=== PATIENT | male | born 1975 | race Caucasian/White ===

== ENCOUNTER 2019-09-09 20:17 | Emergency (ER) | payer BC ==
--- NOTE | 2019-09-09 20:58 | EDM.PDOC ---
ED HPI GENERAL MEDICAL PROBLEM - General Chief Complaint: Laceration Stated Complaint: CUT THIGH RIGHT SIDE Time Seen by Provider: 09/09/19 20:56 Source of Information: Reports: Patient History Limitations: Reports: No Limitations - History of Present Illness Onset: Today Location: Reports: Lower Extremity, Right Associated Symptoms: Reports: No Other Symptoms - Related Data Allergies Allergy/AdvReac Type Severity Reaction Status Date / Time No Known Allergies Allergy Verified 09/09/19 20:39 Home Meds: Home Meds NK [No Known Home Meds] 09/09/19 [History] Social & Family History - Tobacco Use Smoking Status *Q: Never Smoker ED ROS GENERAL - Review of Systems Review Of Systems: See Below Constitutional: Reports: No Symptoms Respiratory: Reports: No Symptoms Cardiovascular: Reports: No Symptoms ED EXAM, SKIN/RASH Exam: See Below Exam Limited By: No Limitations General Appearance: Alert, WD/WN Respiratory/Chest: No Respiratory Distress Cardiovascular: Normal Peripheral Pulses Extremities: Normal Range of Motion, No Pedal Edema, Other (antererior R thigh, just above knee. 1.5 cm linear laceration. Not bleeding and appears clean.) Neurological: Alert, Oriented Psychiatric: Normal Affect, Normal Mood ED SKIN PROCEDURES - Laceration/Wound Repair Right Lower Anterior Thigh Appearance: Subcutaneous Distal NVT: Neuro & Vascular Intact Skin Prep: Chlorhexidine (Hibiciens) Exploration/Debridement/Repair: Wound Explored Closed with: Ruby Lac/Wound length In cm: 1.5 # of Sutures: 2 Course - Vital Signs Last Recorded V/S: Last Vital Signs Temp 35.9 C L 09/09/19 20:45 Pulse 60 09/09/19 20:45 Resp 14 09/09/19 20:45 BP 117/76 09/09/19 20:45 Pulse Ox 99 09/09/19 20:45 - Orders/Labs/Meds Meds: Medications Discontinued Medications Generic Name Dose Route Start Last Admin Trade Name Freq PRN Reason Stop Dose Admin Diphtheria/Tetanus/Acell Pertussis 0.5 ml 09/09/19 21:09 09/09/19 21:15 Adacel IM 09/09/19 21:10 0.5 ml .ONCE ONE Administration Departure - Departure Time of Disposition: 20:58 Disposition: Home, Self-Care 01 Condition: Good Clinical Impression: Puncture wound - injury - Discharge Information Instructions: Laceration Care, Adult, [id number], Sutures, Scio, or Adhesive Wound Closure, [id number] Referrals: PCP,None [Primary Care Provider] - Forms: ED Department Discharge Additional Instructions: Keep wound clean dry and covered. Scio out in 5-6 days. Sepsis Event Note (ED) - Evaluation Sepsis Screening Result: No Definite Risk
[2019-09-09] MEDS ORDERED: Diphtheria,Pertussis(Acell),Tetanus Vaccine 0.5 ML SDV IM ONE (21:09)
== END 2019-09-09 21:17 | disposition home or self-care (01) ==
LOC: JP.ED 20:17
DX: S71.131A Puncture wound without foreign body, right thigh, initial encounter (principal); Z23 Encounter for immunization; W26.0XXA Contact with knife, initial encounter
CPT/HCPCS: 12001; 90471; 90715; 99282